=== PATIENT | male | born 1970 | race Caucasian/White ===

== ENCOUNTER 2019-06-06 18:24 | Emergency (ER) | payer OTHER ==
[~2019-06-06] VITALS: Ht 182.9 cm; Wt 122.5 kg
[2019-06-06] MEDS ORDERED: KEFLEX500 M1 PO (20:15)
[2019-06-06] MEDS ORDERED: NABUMETONE 750750 M1 PO (20:15)
[2019-06-06 20:47] VITALS: BP 157/93
== END 2019-06-06 20:25 | disposition home or self-care (01) ==
LOC: M.ERS 18:24
DX: M65.241 Calcific tendinitis, right hand (principal)